=== PATIENT | female | born 1975 | race Caucasian/White ===

== ENCOUNTER 2025-06-21 06:14 | Emergency (ER) | payer OTHER ==
[~2025-06-21] VITALS: Ht 170.2 cm; Wt 88.5 kg
[2025-06-21] MEDS ORDERED: GLY/480L3 TP (06:46)
[2025-06-21 06:52] VITALS: BP 148/97; TEMP 86; O2SAT 97
== END 2025-06-21 06:52 | disposition home or self-care (01) ==
LOC: ER 06:14
DX: L30.9 Dermatitis, unspecified (principal); R53.83 Other fatigue; Z60.2 Problems related to living alone